=== PATIENT | female | born 1975 | race Caucasian/White ===

== ENCOUNTER 2018-11-03 23:00 | Emergency (ER) | payer BC, OTHER ==
[2018-11-03] MEDS ORDERED: Lidocaine 1% 30 ML SDV INJECT ONE (23:15)
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
== END 2018-11-04 00:47 | disposition home or self-care (01) ==
LOC: VM.ED 23:00
DX: S61.411A Laceration without foreign body of right hand, initial encounter (principal); W26.8XXA Contact with other sharp object(s), not elsewhere classified, initial encounter
CPT/HCPCS: 12001; 12002; 99282